=== PATIENT | female | born 1955 | race Caucasian/White ===

== ENCOUNTER 2017-04-02 22:18 | Emergency (ER) | payer OTHER ==
[~2017-04-02] VITALS: Ht 152.4 cm; Wt 52.2 kg
--- NOTE | ~2017-04-02 | CR170 ---
[facility] A Service of [facility] & [facility] RADIOLOGY TEXT RESULTS PATIENT: RIA CROW LOCATION: [facility] : 53 UNIT #: [id number] AGE: [address]: Praveen Wiseman DO SEX: F ORDER DR: [id number] [facility] [address] [place], [place] [address] [id number] E MR#: [id number] Acc #: [id number] NAME: RIA CROW : 1955 SEX: F STUDY DATE/TIME: 04/02/2017 23:06 UNIT: [facility] ROOM: STUDY DESCRIPTION: CR Knee 2 Views Rt Attending Physician: Praveen Wiseman D.O. Ordering Physician: Praveen Wiseman D.O. Primary Care Physician: Maryam Orellana M.D. MEDICAL IMAGING REPORT This report is preliminary unless electronic signature is present EXAM Right knee, 04/02/2017. HISTORY 61-year-old female in the ED with bilateral knee pain and left elbow pain after a fall down steps today prior to arrival. TECHNIQUE Two-view right knee series. FINDINGS No fracture, dislocation, or other acute osseous abnormality. No visible joint effusion or radiopaque soft tissue foreign body. IMPRESSION Negative right knee series. Dictated by... Cruz Martin M.D. THIS IS AN ELECTRONICALLY VERIFIED REPORT Cruz Martin M.D. at 04/06/2017 11:06 PM NAZW/ml TD: 04/03/2017 13:40 JOB #: [id number] MEDICAL IMAGING REPORT Page 1 of 1 COPY
--- NOTE | ~2017-04-02 | CR93 ---
[facility] A Service of [facility] & [facility] RADIOLOGY TEXT RESULTS PATIENT: RIA CROW LOCATION: [facility] : 53 UNIT #: [id number] AGE: [address]: Praveen Wiseman DO SEX: F ORDER DR: [id number] [facility] [address] [place], [place] [address] [id number] E MR#: [id number] Acc #: [id number] NAME: RIA CROW : 1955 SEX: F STUDY DATE/TIME: 04/02/2017 23:09 UNIT: [facility] ROOM: STUDY DESCRIPTION: CR Elbow Min 3 Views Lt Attending Physician: Praveen Wiseman D.O. Ordering Physician: Praveen Wiseman D.O. Primary Care Physician: Maryam Orellana M.D. MEDICAL IMAGING REPORT This report is preliminary unless electronic signature is present EXAM Left elbow series 04/02/2017 HISTORY 61-year-old female in the ED with left elbow pain after fall down steps today. TECHNIQUE Three-view left elbow series. FINDINGS The exam shows moderate soft tissue swelling posteriorly in the region of the olecranon bursa. Given the history of trauma, this may represent hematoma within the bursa. The remainder of the exam is negative. No fracture, dislocation or other osseous abnormality. IMPRESSION 1. No acute osseous abnormality. 2. Soft tissue swelling in the region of the olecranon bursa. Dictated by... Cruz Martin M.D. THIS IS AN ELECTRONICALLY VERIFIED REPORT Cruz Martin M.D. at 04/06/2017 11:06 PM Wolf TD: 04/03/2017 13:07 JOB #: [id number] MEDICAL IMAGING REPORT Page 1 of 1 COPY
--- NOTE | ~2017-04-02 | CR169 ---
[facility] A Service of [facility] & [facility] RADIOLOGY TEXT RESULTS PATIENT: RIA CROW LOCATION: [facility] : 53 UNIT #: [id number] AGE: [address]: Praveen Wiseman DO SEX: F ORDER DR: [id number] [facility] [address] [place], [place] [address] [id number] E MR#: [id number] Acc #: [id number] NAME: RIA CROW : 1955 SEX: F STUDY DATE/TIME: 04/02/2017 23:06 UNIT: [facility] ROOM: STUDY DESCRIPTION: CR Knee 2 Views Lt Attending Physician: Praveen Wiseman D.O. Ordering Physician: Praveen Wiseman D.O. Primary Care Physician: Maryam Orellana M.D. MEDICAL IMAGING REPORT This report is preliminary unless electronic signature is present EXAM Left knee, 04/02/2017. HISTORY 61-year-old female in the ED complaining of bilateral knee pain and left elbow pain after injury. Fell down steps today prior to arrival. TECHNIQUE AP and lateral radiographs of the left knee. FINDINGS The examination is negative. No fracture, dislocation or other acute osseous abnormality. No visible joint effusion or radiopaque soft tissue foreign body. IMPRESSION Negative left knee series. Dictated by... Cruz Martin M.D. THIS IS AN ELECTRONICALLY VERIFIED REPORT Cruz Martin M.D. at 04/06/2017 11:06 PM Wolf TD: 04/03/2017 13:05 JOB #: [id number] MEDICAL IMAGING REPORT Page 1 of 1 COPY
--- NOTE | ~2017-04-02 | CT57 ---
[facility] A Service of [facility] & [facility] RADIOLOGY TEXT RESULTS PATIENT: RIA CROW LOCATION: [facility] : 53 UNIT #: [id number] AGE: [address]: Praveen Wiseman DO SEX: F ORDER DR: [id number] [facility] [address] [place], [place] [address] [id number] E MR#: [id number] Acc #: [id number] NAME: RIA CROW : 1955 SEX: F STUDY DATE/TIME: 04/02/2017 23:54 UNIT: [facility] ROOM: STUDY DESCRIPTION: CT Chest Wo Cont Attending Physician: Praveen Wiseman D.O. Ordering Physician: Praveen Wiseman D.O. Primary Care Physician: Maryam Orellana M.D. MEDICAL IMAGING REPORT This report is preliminary unless electronic signature is present EXAM CT chest, noncontrast, 04/02/2017. HISTORY 61-year-old female in the ED complaining of head, neck, and chest pain after multiple falls today. Ethanol intoxication. TECHNIQUE CT examination of the chest without IV contrast. FINDINGS The examination shows acute fractures of the right first through ninth ribs. Each of the ribs is fractured posteriorly, and the third through seventh ribs are also fractured laterally. The right posterior fourth through ninth rib fractures are displaced, and the right third and seventh rib fractures are displaced. There is a small right hemothorax in the right posterior costophrenic angle. Patchy airspace infiltrates in the periphery of the right mid and lower lung most likely representing pulmonary contusion. There is no pneumothorax. No acute fracture of the thoracic spine or sternum. Thoracic aorta is normal in course, caliber, and contour. No mediastinal fluid collection or pericardial effusion. Postop changes, CABG surgery. A myocardial calcification of the left ventricular apex likely related to old infarct. Limited upper abdominal images are unremarkable. IMPRESSION 1. Acute fractures of the right first through ninth ribs with multiple displaced rib fractures. The third through seventh ribs are fractured in 2 [address]. See details above. [facility] A Service of [facility] & [facility] RADIOLOGY TEXT RESULTS PATIENT: RIA CROW LOCATION: [facility] : 53 UNIT #: [id number] AGE: [address]: Praveen Wiseman DO SEX: F ORDER DR: 2. Small right hemothorax. No pneumothorax. 3. Minimal peripheral airspace infiltrate in the right mid and lower lungs, likely secondary pulmonary contusion. The lungs otherwise clear. 4. CABG. Calcification of the thin myocardium at the left ventricular apex compatible with old infarct. 5. No evidence of great vessel injury within the mediastinum. Dictated by... Cruz Martin M.D. THIS IS AN ELECTRONICALLY VERIFIED REPORT Cruz Martin M.D. at 04/06/2017 11:06 PM Wolf TD: 04/03/2017 13:31 JOB #: [id number] MEDICAL IMAGING REPORT Page 1 of 1 COPY
--- NOTE | ~2017-04-02 | CT52 ---
[facility] A Service of [facility] RADIOLOGY TEXT RESULTS PATIENT: RIA CROW LOCATION: [facility] : 51 UNIT #: [id number] AGE: [address]: Praveen Wiseman DO SEX: F ORDER DR: [id number] [facility] [address] [place], [place] [address] [id number] E MR#: [id number] Acc #: [id number] NAME: RIA CROW : 1955 SEX: F STUDY DATE/TIME: 04/02/2017 23:51 UNIT: [facility] ROOM: STUDY DESCRIPTION: CT Cervical Spine Wo Cont Attending Physician: Praveen Wiseman D.O. Ordering Physician: Praveen Wiseman D.O. Primary Care Physician: Maryam Orellana M.D. MEDICAL IMAGING REPORT This report is preliminary unless electronic signature is present EXAM CT cervical spine 04/02/2017 HISTORY 61-year-old female in the ED complaining of head, neck and chest pain after multiple falls today. Ethanol intoxication. TECHNIQUE Thin-section axial CT images were obtained from the skull base through the mid portion of T2. Sagittal and coronal images were reconstructed. This CT examination was performed with one or more of the following radiation dose reduction techniques: automatic exposure control, adjustment of mA and/or kV according to patient size, and iterative reconstruction. FINDINGS No fracture or other acute osseous abnormality is demonstrated involving the cervical spine. Moderate degenerative disc space narrowing at C5-6 and C6-7. Lyef-fl-rtixkdux multilevel degenerative facet arthropathy throughout the cervical spine, greatest on the left at C4-5. Cervical vertebral alignment is normal. The lowest images partially include multiple acute right upper rib fractures. Please see chest CT to follow. IMPRESSION 1. No fracture or other acute osseous abnormality involving the cervical spine. 2. Multiple right upper rib fractures are visible. Chest CT to follow. 3. Degenerative disc disease at C5-6 and C6-7 with more mild disc space narrowing throughout the remainder of the cervical spine. Multilevel degenerative facet arthropathy, greatest on the left at C4-5. [facility] A Service of [facility] & [facility] RADIOLOGY TEXT RESULTS PATIENT: RIA CROW LOCATION: [facility] : 53 UNIT #: [id number] AGE: [address]: Praveen Wiseman DO SEX: F ORDER DR: Dictated by... Cruz Martin M.D. THIS IS AN ELECTRONICALLY VERIFIED REPORT Cruz Martin M.D. at 04/06/2017 11:06 PM WILLIAM/maritza TD: 04/03/2017 13:41 JOB #: [id number] MEDICAL IMAGING REPORT Page 1 of 1 COPY
--- NOTE | ~2017-04-02 | CT71 ---
[facility] A Service of [facility] RADIOLOGY TEXT RESULTS PATIENT: RIA CROW LOCATION: [facility] : 53 UNIT #: [id number] AGE: [address]: Praveen Wiseman DO SEX: F ORDER DR: [id number] [facility] [address] [place], [place] [address] [id number] E MR#: [id number] Acc #: [id number] NAME: RIA CROW : 1955 SEX: F STUDY DATE/TIME: 04/02/2017 23:49 UNIT: [facility] ROOM: STUDY DESCRIPTION: CT Head Wo Contrast Attending Physician: Praveen Wiseman D.O. Ordering Physician: Praveen Wiseman D.O. Primary Care Physician: Maryam Orellana M.D. MEDICAL IMAGING REPORT This report is preliminary unless electronic signature is present EXAM CT head, noncontrast, 04/02/2017 HISTORY 61-year-old female in the ED complaining of diffuse pain over the head, neck and chest after multiple reported falls today. Marked ethanol intoxication is reported. TECHNIQUE CT examination of the head was performed without IV contrast. This CT examination was performed with one or more of the following radiation dose reduction techniques: automatic exposure control, adjustment of mA and/or kV according to patient size, and iterative reconstruction. FINDINGS No acute intracranial abnormality is demonstrated. Hkkb-jo-xqnmgjag generalized cerebral atrophy and cerebellar atrophy. Mild diffuse low-attenuation white matter changes are nonspecific but most likely related to chronic small vessel disease. No evidence of intracranial hemorrhage, mass, mass effect, acute cerebral edema or hydrocephalus. IMPRESSION 1. No acute intracranial abnormality. No visible skull fracture. 2. Moderate diffuse chronic changes as noted above. Dictated by... Cruz Martin M.D. [facility] A Service [facility] RADIOLOGY TEXT RESULTS PATIENT: RIA CROW LOCATION: [facility] : 51 UNIT #: [id number] AGE: [address]: Praveen Wiseman DO SEX: F ORDER DR: THIS IS AN ELECTRONICALLY VERIFIED REPORT Cruz Martin M.D. at 04/06/2017 11:06 PM Jesusita TD: 04/03/2017 13:33 JOB #: [id number] MEDICAL IMAGING REPORT Page 1 of 1 COPY
[~2017-04-02 22:18] MED LIST: VOLTAREN50 MG PO
[2017-04-02 23:47] LABS: BASOPHIL# 0.1 X10e3 (0-0.3); BASOPHIL% 1.2 % (0-2.5); EOSINOPHIL# 0.1 X10e3 (0-0.7); HEMATOCRIT 39.7 % (35.0-45.0); HEMOGLOBIN 13.6 gm/dL (12.0-16.0); LYMPHOCYTE# 0.9 X10e3 (1.0-3.5); LYMPHOCYTE% 15.6 % (17.0-45.0); MEAN CELL VOLUME 102.3 FL (83-96); MEAN CORPUSCULAR HEMOGLOBIN 35.1 PG (28-34); MEAN CORPUSCULAR HGB CONC 34.3 g/dL (30-36); MEAN PLATELET VOLUME 7.4 FL (6.5-11.5); MONOCYTE# 0.4 X10e3 (0-1.0); MONOCYTE% 7.8 % (3.0-12.0); NEUTROPHIL# 4.2 X10e3 (1.5-7.1); NEUTROPHIL% 74.4 % (40-75); PLATELET COUNT 145 X10e3 (140-420); RED BLOOD COUNT 3.88 X10e (3.90-5.30); RED CELL DISTRIBUTION WIDTH 14.7 % (11.0-15.5); WHITE BLOOD COUNT 5.7 X10e3 (4.0-10.5)
[2017-04-02 23:51] LABS: DIFF IND NO
[2017-04-03 00:02] LABS: INR 0.9; PARTIAL THROMBOPLASTIN TIME 25.4 SECONDS (23.5-31.3); PROTHROMBIN TIME (PATIENT) 10.3 SECONDS (10.0-11.7)
[2017-04-03 00:37] LABS: ALBUMIN SERUM 4.4 g/dL (3.5-5.0); ALKALINE PHOSPHATASE 121 U/L (32-92); ALT (SGPT) 168 U/L (10-40); AST (SGOT) 522 U/L (10-42); BILIRUBIN, DIRECT 0.2 mg/dL (0.0-0.2); BILIRUBIN,INDIRECT 0.5 mg/dL (0.0-0.9); BILIRUBIN,TOTAL 0.7 mg/dL (0.2-2.0); BLOOD UREA NITROGEN 10 mg/dL (9-23); CALCIUM SERUM 8.5 mg/dL (8.4-10.2); CARBON DIOXIDE 18 mmol/L (22-31); CHLORIDE 91 mmol/L (100-111); CREATININE SERUM 0.5 mg/dL (0.6-1.4); GLUCOSE FASTING 101 mg/dL (70-110); POTASSIUM 3.9 mmol/L (3.5-5.1); PROTEIN TOTAL SERUM 8.4 g/dL (6.0-8.3); SALICYLATE <4.0 mg/dL
[2017-04-03 00:38] LABS: ACETAMINOPHEN <10 ug/mL; ALCOHOL BLOOD 373 mg/dL (0); SODIUM 124 mmol/L (135-145)
[2017-04-03 01:17] LABS: POC - CKMB 13.2 ng/mL (0.0-7.9); POC - TROPONIN <0.05 ng/mL (<=0.05)
[2017-04-03 03:00] LABS: AMPHETAMINE NEG (NEG); BARBITURATES NEG (NEG); BENZODIAZEPINES NEG (NEG); COCAINE NEG (NEG); MARIJUANA NEG (NEG); OPIATES NEG (NEG); TRICYCLIC ANTIDEPRESSANTS NEG (NEG); U METHADONE NEG (NEG)
== END 2017-04-03 02:38 | disposition short-term general hospital (02) ==
LOC: CED 22:18
PROVIDERS: Emergency Medicine
DX: S22.41XA Multiple fractures of ribs, right side, initial encounter for closed fracture (principal); S27.321A Contusion of lung, unilateral, initial encounter; S27.1XXA Traumatic hemothorax, initial encounter; E87.1 Hypo-osmolality and hyponatremia; R45.851 Suicidal ideations; F10.129 Alcohol abuse with intoxication, unspecified; W10.9XXA Fall (on) (from) unspecified stairs and steps, initial encounter; Y92.9 Unspecified place or not applicable; F17.200 Nicotine dependence, unspecified, uncomplicated; F32.9 Major depressive disorder, single episode, unspecified
CPT/HCPCS: 36415; 70450; 71250; 72125; 73080; 73560; 80048; 80076; 80307; 82553; 84484; 85025; 85610; 85730; 99285; G0480